=== PATIENT | male | born 1950 | race Caucasian/White ===

== ENCOUNTER 2016-10-05 05:53 | Observation (INO) | payer BC, MEDICARE ==
[2016-10-05] MEDS ORDERED: NEURONTIN300 M1 PO (06:11)
[2016-10-05] MEDS ORDERED: SYMBICORT 160-1 PUFF INH (06:11)
[2016-10-05] MEDS ORDERED: ATROVENT HFA1 PUFF INH (06:11)
[2016-10-05] MEDS ORDERED: XOPENEX HFA15 G1 INH (06:12)
[2016-10-05 06:28] LABS: BASO % 1.1 % (0-2); BASO ABSOLUTE COUNT 0.1 tho/cmm (0.0-0.2); EOS % 0.5 % (0-7); EOSINOPHIL ABSOLUTE COUNT 0.1 tho/cmm (0.0-0.7); HGB-HEMOGLOBIN 16.2 gm/dl (13.5-17.0); IMMATURE GRANULOCYTES ABSOLUTE 0.15 tho/cmm (0-0.03); IMMATURE GRANULOCYTES PERCENT 1.2 % (0-0.3); LYMPH % 9.4 % (20-45); LYMPH ABSOLUTE COUNT 1.2 tho/cmm (0.8-4.5); MCH (MEAN CORPUSCULAR HGB) 29.4 pg (28.0-32.0); MCHC MEAN CORPUSCULAR HGB CONC 35.2 % (32.0-36.0); MCV (MEAN CELL VOLUME) 83.5 fl (82.0-96.0); MEAN PLATELET VOLUME 10.1 cmc (9.4-12.4); MONO % 5.7 % (0-12); MONOCYTE ABSOLUTE COUNT 0.7 tho/cmm (0.0-1.2); NEUTROPHIL ABSOLUTE COUNT 10.6 tho/cmm (1.6-8.0); NEUTROPHIL-AUTOMATED 10.6 tho/cmm (1.6-8.0); NEUTROPHILS % 82.1 % (40-80); PLATELET COUNT 275 tho/cmm (150-450); RED BLOOD COUNT 5.51 mil/cmm (4.40-5.70); WHITE BLOOD COUNT 12.9 tho/cmm (4.0-10.0)
[2016-10-05 06:41] LABS: ALB/GLOB RATIO 1.1 (0.8-2.0); ALBUMIN 3.9 g/dl (3.5-5.0); ALKALINE PHOSPHATASE 110 U/L (33-138); ALT/SGPT 47 U/L (12-78); ANION GAP 15 mmol/L (0-20); AST/SGOT 31 U/L (10-40); BILIRUBIN,TOTAL 0.5 mg/dl (0.0-1.5); BLOOD UREA NITROGEN 17 mg/dl (6-24); CALCIUM 8.9 mg/dl (8.5-10.5); CARBON DIOXIDE-VENOUS 23 mmol/L (22-32); CHLORIDE 108 mmol/l (96-110); CREATININE 1.04 mg/dl (0.60-1.30); GLUCOSE 108 mg/dL (70-110); LIPASE 154 U/L (73-393); POTASSIUM 4.6 mmol/L (3.7-5.1); SODIUM 141 mmol/L (135-145); eGFR VALUE FOR BLACK 85 mL/Min
[2016-10-05 11:36] LABS: CHOLESTEROL 185 mg/dl (120-200); HDL CHOLESTEROL 45 mg/dl (40-60); LDL CHOLESTEROL 92 mg/dl (0-99); VLDL 48 mg/dl (0-30)
[2016-10-05 11:44] LABS: TRIGLYCERIDES 240 mg/dl (<149)
== END 2016-10-05 17:20 | disposition other institution (70) ==
LOC: EDMED 05:53 → EMR2 08:27 → 5WE 10:39
PROVIDERS: Emergency Medicine; Nurse Practitioner Acute Care; ADMIT Internal Medicine Cardiovascular Disease
DX: R07.89 Other chest pain (principal); J44.9 Chronic obstructive pulmonary disease, unspecified; D72.829 Elevated white blood cell count, unspecified; R05 Cough; G25.81 Restless legs syndrome; G62.9 Polyneuropathy, unspecified; R06.83 Snoring; R53.83 Other fatigue; I10 Essential (primary) hypertension; Z79.899 Other long term (current) drug therapy; Z87.891 Personal history of nicotine dependence; Z98.49 Cataract extraction status, unspecified eye; Z98.890 Other specified postprocedural states
CPT/HCPCS: A9500; G0378; J2785